=== PATIENT | female | born 1980 | race American Indian/Alaskan Native ===

== ENCOUNTER 2017-04-20 13:36 | Emergency (ER) | payer SELFPAY ==
[2017-04-20 13:50] VITALS: BP 127/66
[2017-04-20] MEDS ORDERED: Ibuprofen 800 MG Tab PO ONE (14:07)
--- NOTE | 2017-04-20 14:11 | EDM.PDOC ---
ED HPI GENERAL MEDICAL PROBLEM - General Chief Complaint: Lower Extremity Injury/Pain Stated Complaint: L LEG INJURY Time Seen by Provider: 04/20/17 13:54 Source of Information: Reports: Patient History Limitations: Reports: No Limitations - History of Present Illness INITIAL COMMENTS - FREE TEXT/NARRATIVE: Patient is a 37-year-old female who presents ED complaining of left anterior and and medial knee pain. Patient states this past Thursday she tripped on some lumbar injuring her left knee. Due to her inability to walk and swelling present patient went home and iced it throughout the course the weekend. Swelling has decreased up until today. Patient states today while at work she tripped on a mat twisting her left knee. She had instant pain to the anterior and medial aspect of the knee with some mild swelling present. She is able to weight-bear but is limited secondary to discomfort. She has no prior history of surgeries to the left knee. There is no numbness or tingling present. She is not able to really flex or extend her knee secondary discomfort. She denies any additional complaints. Left Knee Pain Score (Numeric/FACES): 7 - Related Data Allergies Allergy/AdvReac Type Severity Reaction Status Date / Time No Known Allergies Allergy Verified 04/20/17 13:54 Home Meds: Home Meds Ferrous Sulfate [Iron] 325 mg PO DAILY 04/20/17 [History] Sertraline [Zoloft] 0 mg PO DAILY 04/20/17 [History] Past Medical History Psychiatric History: Reports: Depression Hematologic History: Reports: Anemia Social & Family History - Tobacco Use Smoking Status *Q: Never Smoker - Caffeine Use Caffeine Use: Reports: Coffee, Energy Drinks, Soda - Recreational Drug Use Recreational Drug Use: No Review of Systems - Review of Systems Review Of Systems: See Below Musculoskeletal: Reports: Joint Swelling (Left anterior knee) Skin: Denies: Bruising Neurological: Reports: Difficulty Walking (Secondary and left knee pain). Denies: Numbness, Tingling ED EXAM, GENERAL - Physical Exam Exam: See Below Exam Limited By: No Limitations General Appearance: Alert, WD/WN, No Apparent Distress Ears: Hearing Grossly Normal Nose: Normal Inspection Throat/Mouth: Normal Voice, No Airway Compromise Neck: Normal Inspection, Supple Respiratory/Chest: No Respiratory Distress, No Accessory Muscle Use Cardiovascular: Normal Peripheral Pulses, Regular Rate, Rhythm Peripheral Pulses: 2+: Posterior Tibial (L) Extremities: Other (Mild swelling noted to the left anterior knee. Pain with palpation the left and it Kathleen along the patella and also medial joint space. Decreased range of motion both passive and active secondary discomfort. Limited exam secondary to pain.) Neurological: Alert, Oriented, CN II-XII Intact, Normal Cognition, No Motor/ Sensory Deficits Psychiatric: Normal Affect, Normal Mood Skin Exam: Warm, Dry, Intact, Normal Color Course - Vital Signs Last Recorded V/S: Last Vital Signs Temp 97.4 F 04/20/17 13:46 Pulse 56 L 04/20/17 13:46 Resp 20 04/20/17 13:46 BP 127/66 04/20/17 13:46 Pulse Ox 100 04/20/17 13:46 - Orders/Labs/Meds Orders: Active Orders 24 hr Category Date Time Status DME for Discharge [COMM] Stat Oth 04/20/17 15:08 Ordered Meds: Medications Discontinued Medications Generic Name Dose Route Start Last Admin Trade Name Freq PRN Reason Stop Dose Admin Ibuprofen 800 mg 04/20/17 14:07 04/20/17 14:27 Motrin PO 04/20/17 14:08 800 mg ONETIME ONE Administration - Re-Assessments/Exams Free Text/Narrative Re-Assessment/Exam: Ordered x-ray of the left knee and also ibuprofen 800 mg by mouth. X-ray of the left knee did not reveal any acute bony abnormalities. Soft tissue swelling present. Ordered knee immobilizer and crutches for discharge. Discharge instructions as documented. Departure - Departure Time of Disposition: 15:04 Disposition: Home, Self-Care 01 Condition: Good Clinical Impression: Left knee sprain Qualifiers: Encounter type: initial encounter Involved ligament of knee: unspecified cruciate ligament Qualified Code(s): S83.502A - Sprain of unspecified cruciate ligament of left knee, initial encounter - Discharge Information Instructions: Crutch Use, [id number], Cast or Splint Care, [id number], Knee Sprain, [id number], Knee Immobilizer, [id number] Referrals: Debora Barrera MD [Primary Care Provider] - Forms: ED Department Discharge, ED Return to Work/School Form Additional Instructions: As discussed x-ray of the left knee did not reveal any acute bony abnormalities. Etiology current complaint most likely knee sprain. May involve collateral ligaments, meniscus, or muscles with upper thigh. Treatment at this time is knee immobilizer utilizing crutches to ambulate. You're to be nonweightbearing. Apply ice to affected area as needed throughout the course the day. Elevate when able to reduce any swelling and pain. Take Tylenol and ibuprofen in alternating fashion for discomfort. Call and make an appointment with Dr. Santiago orthopedic surgeon tomorrow to be seen in 10 days for reevaluation. Return to the ED as needed for any new or worsening symptoms. To return to work please see occupational med doctor for modification of job duties. - My Orders Last 24 Hours: My Active Orders 04/20/17 15:08 DME for Discharge [COMM] Stat - Assessment/Plan Last 24 Hours: My Active Orders 04/20/17 15:08 DME for Discharge [COMM] Stat
--- NOTE | 2017-04-20 15:06 | CR ---
Left knee: Four views of the left knee were obtained. Medial and lateral joint spaces are preserved. No joint effusion is seen. Minimal spurring off the patella is noted. No fracture or other abnormality is appreciated. Impression: 1. Minimal spurring within the patella. 2. Left knee exam is otherwise unremarkable. Diagnostic code #2
== END 2017-04-20 15:31 | disposition home or self-care (01) ==
LOC: JD.ED 13:36
DX: S83.502A Sprain of unspecified cruciate ligament of left knee, initial encounter (principal); F32.9 Major depressive disorder, single episode, unspecified; Z79.899 Other long term (current) drug therapy; X50.0XXA Overexertion from strenuous movement or load, initial encounter
CPT/HCPCS: 73564; 99284; A9270; 99283

== ENCOUNTER → 2017-05-07 | Day surgery (SDC) | payer MEDICAID ==
[~2017-05-07] MED LIST: Lactated Ringers 1,000 ML IV SCH; Lidocaine 1% 0 ML ONE; Lidocaine 1%/Sod Bicarbonate in NS 8.4% 1 ML Syringe PRN; Midazolam 1 MG/ML 2 ML SDV ONE; Propofol 200 MG/20 ML SDV ONE; Sodium Chloride 0.9% 10 ML Syringe FLUSH PRN; fentaNYL 100 MCG/2 ML SDV ONE
== END ==
LOC: JD.SDS 10:47
PROVIDERS: ATTEND Surgery
DX: Z53.8 Procedure and treatment not carried out for other reasons (principal)
CPT/HCPCS: J2250; J2704; J3010

== ENCOUNTER 2019-12-09 04:21 | Emergency (ER) | payer BC, OTHER ==
[2019-12-09] MEDS ORDERED: Sodium Chloride 0.9% 10 ML Syringe FLUSH PRN (05:01)
--- NOTE | 2019-12-09 05:10 | EDM.PDOC ---
<SofieAbdon Donny - Last Filed: 12/09/19 06:53> ED HPI GENERAL MEDICAL PROBLEM - General Chief Complaint: ENT Problem Stated Complaint: SWOLLEN LIP/CHEEK/DIZZY Time Seen by Provider: 12/09/19 04:33 Source of Information: Reports: Patient History Limitations: Reports: No Limitations - History of Present Illness INITIAL COMMENTS - FREE TEXT/NARRATIVE: Ms. Kang is a 39-year-old woman with a past medical history significant for obesity, who now presents the ED stating that she developed right cheek swelling yesterday morning, , 12/08/2019. She denies having any trauma to the area, and does not recall being bitten by an insect. She denies dental pain, although she states that she has a purulent oral drainage. No recent fever. No prior similar symptoms. The patient did not attempt any over-the- counter or home remedies prior to coming to the ED. Here in the ED, the patient's initial BP is found to be elevated at 150/78, and she is mildly tachycardic at 105 bpm, otherwise, she is afebrile, saturating 100 % on room air. The patient denies recent fever, chills, sore throat, ear pain, nasal or sinus congestion, cough, dyspnea, chest pain, palpitations, nausea, vomiting, constipation, diarrhea, abdominal pain, urinary symptoms, recent weight gain or weight loss, recent bloody bowel movements or black bowel movements, recent joint aches, headaches, or rashes. The patient does not have a PCP. - Related Data Allergies Allergy/AdvReac Type Severity Reaction Status Date / Time No Known Allergies Allergy Verified 12/09/19 04:39 Home Meds: Home Meds Amoxicillin/Clavulanate K [Augmentin 875-125 MG] 1 tab PO Q12H #20 tab 12/09/19 [Rx] Past Medical History Endocrine/Metabolic History: Reports: Obesity/BMI 30+ - Past Surgical History HEENT Surgical History: Reports: Oral Surgery (wisdom teeth extracted) GI Surgical History: Reports: Cholecystectomy (2002) Female Surgical History: Reports: Section (x 4), Tubal Ligation Social & Family History - Family History Family Medical History: Noncontributory - Tobacco Use Smoking Status *Q: Current Some Day Smoker Years of Tobacco use: 1 Packs/Tins Daily: 0.1 - Caffeine Use Caffeine Use: Reports: None - Alcohol Use Alcohol Use History: Yes Alcohol Use Frequency: Socially - Recreational Drug Use Recreational Drug Use: No - Living Situation & Occupation Living situation: Reports: Single, with Family (4 kids) Occupation: Employed ([employer]) ED ROS GENERAL - Review of Systems Review Of Systems: Comprehensive ROS is negative, except as noted in HPI. ED EXAM, GENERAL - Physical Exam Exam: See Below Exam Limited By: No Limitations General Appearance: Alert, WD/WN, No Apparent Distress Eye Exam: Bilateral Eye: EOMI, Normal Inspection Ears: Normal Canal (left), Hearing Grossly Normal, Other (Normal left ear. 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 Teeth #3, 4, 5 with amalgam fillings. Tooth #12 capped. Teeth # 13 , 14 with amalgam fillings. Tooth #16 absent. Tooth #17 absent. Tooth #18 with composite filling. Tooth #19 absent. Tooth #21 absent. Tooth #28, 29, 30 , 31 with amalgam fillings. Tooth #32 absent. There is a tongue piercing.) Head: Atraumatic, Facial Swelling (Right cheek, with mild erythema and mild calor. The medial aspect of the swelling is tender to palpation.) Neck: Normal Inspection, Supple, Non-Tender, Full Range of Motion. No: Lymphadenopathy (L), Lymphadenopathy (R) Course - Vital Signs Last Recorded V/S: Last Vital Signs Temp 36.5 C 12/09/19 04:31 Pulse 105 H 12/09/19 04:31 Resp 18 12/09/19 04:31 BP 150/78 H 12/09/19 04:31 Pulse Ox 100 12/09/19 04:31 - Orders/Labs/Meds Orders: Active Orders 24 hr Category Date Time Status Peripheral IV Care [RC] . DIRECTED Care 12/09/19 05:01 Active Sodium Chloride 0.9% [Normal Saline] 1,000 ml Med 12/09/19 05:15 Active IV ASDIRECTED Sodium Chloride 0.9% [Saline Flush] Med 12/09/19 05:01 Active 10 ml FLUSH ASDIRECTED PRN Peripheral IV Insertion Adult [OM.PC] Routine Oth 12/09/19 05:01 Ordered Medication Orders Sodium Chloride (Normal Saline) 1,000 mls @ 150 mls/hr IV ASDIRECTED GRACIE Last Admin: 12/09/19 05:17 Dose: 150 mls/hr Sodium Chloride (Saline Flush) 10 ml FLUSH ASDIRECTED PRN PRN Reason: Keep Vein Open Last Admin: 12/09/19 05:17 Dose: 10 ml Labs: Laboratory Tests 12/09/19 12/09/19 Range/Units 05:12 05:50 WBC 5.51 (3.98-10.04) K/mm3 RBC 3.83 L (3.98-5.22) M/mm3 Hgb 9.9 L (11.2-15.7) gm/dl Hct 33.0 L (34.1-44.9) % MCV 86.2 (79.4-94.8) fl MCH 25.8 (25.6-32.2) pg MCHC 30.0 L (32.2-35.5) g/dl RDW Std Deviation 50.9 H (36.4-46.3) fL Plt Count 267 (182-369) K/mm3 MPV 10.3 (9.4-12.3) fl Neutrophils % (Manual) 85 H (40-60) % Band Neutrophils % 0 (0-10) % Lymphocytes % (Manual) 10 L (20-40) % Atypical Lymphs % 0 % Immat Monocytes % (Man) 0 Monocytes % (Manual) 5 (2-10) % Eosinophils % (Manual) 0 L (0.7-5.8) % Basophils % (Manual) 0 L (0.1-1.2) Metamyelocytes % 0 Myelocytes % 0 Promyelocytes % 0 Blast Cells % 0 Plasma Cell % (Manual) 0 Nucleated RBCs 0.0 % Platelet Estimate Adequate Anisocytosis 1+ slight RBC Morph Comment Not Reportable Sodium 140 (136-145) mEq/L Potassium 3.6 (3.5-5.1) mEq/L Chloride 103 (98-107) mEq/L Carbon Dioxide 24 (21-32) mEq/L Anion Gap 16.6 H (5-15) BUN 16 (7-18) mg/dL Creatinine 1.1 H (0.55-1.02) mg/dL Est Cr Clr Drug Dosing 67.43 mL/min Estimated GFR (MDRD) 56 (>60) mL/min BUN/Creatinine Ratio 14.5 (14-18) Glucose 104 (74-106) mg/dL Calcium 8.9 (8.5-10.1) mg/dL Total Bilirubin 0.9 (0.2-1.0) mg/dL AST 64 H (15-37) U/L ALT 94 H (14-59) U/L Alkaline Phosphatase 101 (46-116) U/L Total Protein 8.3 H (6.4-8.2) g/dl Albumin 3.8 (3.4-5.0) g/dl Globulin 4.5 gm/dL Albumin/Globulin Ratio 0.8 L (1-2) Meds: Medications Generic Name Dose Route Start Last Admin Trade Name Freq PRN Reason Stop Dose Admin Sodium Chloride 1,000 mls @ 150 mls/hr 12/09/19 05:15 12/09/19 05:17 Normal Saline IV 150 mls/hr ASDIRECTED GRACIE Administration Sodium Chloride 10 ml 12/09/19 05:01 12/09/19 05:17 Saline Flush FLUSH 10 ml ASDIRECTED PRN Administration Keep Vein Open Discontinued Medications Generic Name Dose Route Start Last Admin Trade Name Freq PRN Reason Stop Dose Admin Iopamidol 100 ml 12/09/19 05:59 12/09/19 06:00 Isovue-300 (61%) IVPUSH 12/09/19 06:00 100 ml ONETIME ONE Administration - Re-Assessments/Exams Free Text/Narrative Re-Assessment/Exam: 12/09/19 05:02 As above, the patient has had about 24 hours of right facial swelling with some tenderness. She feels like she has a purulent oral drainage, but I do not see any source of drainage, dental decay, or suggestion of infection. The cause of the patient's right facial swelling is not immediately obvious. It could be occult inflammatory reaction to an insect bite, although the patient does not recall being bitten by an insect, or an unusual allergic reaction. I think the best way to determine the cause and appropriate treatment is to obtain a CT of her face with IV contrast, along with some blood work to see if there is evidence of an infection. The patient has agreed. 12/09/19 06:32 The patient's CBC is remarkable for a H/H mildly depressed at 9.9/33.0, with the remainder of her CBC being unremarkable. Her CMP is remarkable for an anion gap mildly elevated at 16.6, but with a bicarbonate normal at 24. Her Cr is slightly elevated at 1.1, with a BUN normal at 16. Her AST/ALT are mildly elevated at 64/94, with the remainder of her CMP being unremarkable. 12/09/19 06:[address] Ovalles, and care of the patient turned over to him at this time, for CT results and disposition, for change of shift. Departure - Departure Disposition: Home, Self-Care 01 Clinical Impression: Swelling of right side of face - Discharge Information Prescriptions: Amoxicillin/Clavulanate K [Augmentin 875-125 MG] 1 tab PO Q12H #20 tab Referrals: PCP,None [Primary Care Provider] - Forms: ED Department Discharge, ED Return to Work/School Form Additional Instructions: Return to the emergency room with any questions problems or worsening symptoms. Follow-up in the hospital clinic on Thursday for recheck call today to schedule an appointment [phone]. Take the antibiotics as directed Sepsis Event Note - Evaluation Sepsis Screening Result: No Definite Risk - Focused Exam Vital Signs: Vital Signs Temp Pulse Resp BP Pulse Ox 12/09/19 04:31 36.5 C 105 H 18 150/78 H 100 Date Exam was Performed: 12/09/19 Time Exam was Performed: 06:53 <Stanley Ovalles - Last Filed: 12/09/19 07:25> Course - Re-Assessments/Exams Free Text/Narrative Re-Assessment/Exam: 12/09/19 07:10 Care change of shift. CT results are back which is really nondiagnostic she is got some minimal sinus findings thought to be chronic no other real acute changes noted. Examined the patient she is got no significant intraoral swelling except behind her right upper lip and this is mild she is getting a little irritation from it rubbing on her teeth. She seems to have good strength but has some vague numbness on that side of the face involving the right upper lip and towards the maxillary sinus. She is got mild redness of the skin no obvious bug bite or other signs of trauma. At this point I think is reasonable to start her in antibiotics that she has some redness and facial swelling and this could be related to her sinuses. The other thought is that she developing an early Bhat' s palsy. I did discuss this with the patient and recommend she follow-up in the hospital clinic early this next week. With the sinus potential we will start her on Augmentin 875 twice daily for 10 days. Departure - Departure Time of Disposition: 07:13 Sepsis Event Note - Focused Exam Date Exam was Performed: 12/09/19 Time Exam was Performed: 07:24
[2019-12-09] MEDS ORDERED: Sodium Chloride 0.9% 1,000 ML IV SCH (05:15)
[2019-12-09] MEDS ORDERED: Diatrizoate Meglumine/Diatrizoate Sodium 37% 120 ML Bottle PO ONE (05:57)
[2019-12-09] MEDS ORDERED: Iopamidol 612 MG/ML 100 ML Bottle IVPUSH ONE (05:59)
--- NOTE | 2019-12-09 06:36 | CT ---
CT maxillofacial Technique: Multiple axial sections were obtained from above the frontal sinuses inferiorly through the mandible. Intravenous contrast was given. Reconstructed coronal and sagittal images were obtained. Findings: Small rounded soft tissue findings are seen within both inferior maxillary sinuses believed to represent minimal retention cysts as well as mild mucosal thickening. These findings are most likely chronic. Other visualized paranasal sinuses show nothing acute. Mastoid sinuses are clear. No acute bony abnormality is seen. Right and left globes are symmetric. Mild scattered lymph nodes are seen believed to be within normal limits. No retrobulbar are abnormality is seen. Parotid and submandibular salivary glands show no discrete abnormality. No parapharyngeal abnormality is appreciated. Impression: 1. Nothing acute is appreciated on CT study of the face. 2. Minimal sinus findings believed to be chronic. Diagnostic code #1 This report was dictated in MDT I agree with preliminary report from jo-ann, finalized on 12/09/19, 7:16 AM Central Daylight Time
[2019-12-09 07:32] VITALS: BP 130/70; PULSE 70
== END 2019-12-09 07:32 | disposition home or self-care (01) ==
LOC: JD.ED 04:21
DX: R22.0 Localized swelling, mass and lump, head (principal); E66.9 Obesity, unspecified; F17.210 Nicotine dependence, cigarettes, uncomplicated; Z68.43 Body mass index [BMI] 50.0-59.9, adult
CPT/HCPCS: 36415; 70487; 80053; 85007; 85027; 99283; J7030; Q9967; Q9963

== ENCOUNTER 2020-04-06 03:00 | Emergency (ER) | payer BC, MEDICAID ==
--- NOTE | 2020-04-06 03:21 | EDM.PDOC ---
<Stanley Ovalles - Last Filed: 04/06/20 12:14> ED HPI GENERAL MEDICAL PROBLEM - General Chief Complaint: Respiratory Problem Stated Complaint: COVID + SOB AND ABDOMINAL PAIN Time Seen by Provider: 04/06/20 03:20 - Related Data Allergies Allergy/AdvReac Type Severity Reaction Status Date / Time No Known Allergies Allergy Verified 04/06/20 03:26 Home Meds: Home Meds dexAMETHasone [Dexamethasone] 1.5 mg PO Q6H #40 tab 04/06/20 [Rx] Departure - Departure Time of Disposition: 12:14 Disposition: Home, Self-Care 01 Clinical Impression: COVID-19, Viral pneumonia, Fever, Hypoxia - Discharge Information Prescriptions: dexAMETHasone [Dexamethasone] 1.5 mg PO Q6H #40 tab Instructions: COVID-19 Referrals: PCP,None [Primary Care Provider] - Forms: ED Department Discharge Additional Instructions: Return to the emergency room with any questions problems or worsening symptoms. Use the oxygen as long as you need to. After you have feeling better follow-up in the hospital clinic for recheck [phone]. You have been given a prescription for dexamethasone take this as directed. <Melchor Daigle - Last Filed: 04/07/20 10:32> ED HPI GENERAL MEDICAL PROBLEM - General Source of Information: Reports: Patient History Limitations: Reports: No Limitations - History of Present Illness INITIAL COMMENTS - FREE TEXT/NARRATIVE: 40-year-old female of [place] ancestry presents to the ED due to increasing dyspnea and cough. She believes she became ill last Thursday, March 30. She had a COVID-19 test done on Thursday, April 02 and it came back positive on Thursday the . She believes she has lost her sense of smell and taste. Has not ate much at all for the last 3 days. Has been having loose stools up to 6 or 7 times per day particularly if she eats. Paroxysmal cough somewhat productive of a whitish phlegm. Initially had quite significant fever and chills April 05 to the . Feels generally weak lightheaded and dizzy with standing. She does not have diabetes. Has had previous cholecystectomy and . Risk factors are morbid obesity. She reports she is currently on no medications. Onset: Gradual Onset Date: 03/30/20 Duration: Day(s):, Getting Worse Location: Reports: Chest (Generalized myalgia. Shortness of breath and productive cough.), Generalized, Other (Headache diarrhea) Quality: Reports: Ache (Particular low back left upper abdomen and neck.), Other Severity: Moderate (Headache) Improves with: Reports: None Worsens with: Reports: Other (Standing up and exertion.) Context: Reports: Other (Known COVID-19 illness diagnosed 2 days ago). Denies: Activity, Exercise, Lifting, Sick Contact, Trauma Associated Symptoms: Reports: Cough, cough w sputum, Diaphoresis (Mostly white in color.), Fever/Chills, Headaches, Loss of Appetite, Malaise, Shortness of Breath, Weakness, Other (Loose diarrhea stools up to 6 or 7 times per day). D enies: Confusion, Nausea/Vomiting, Rash, Seizure Treatments WASH BOX OPERATOR: Reports: Acetaminophen, NSAIDS Abdomen Pain Score (Numeric/FACES): 7 Past Medical History - Past Health History Medical/Surgical History: Denies Medical/Surgical History HEENT History: Reports: None Cardiovascular History: Reports: None Respiratory History: Reports: None Gastrointestinal History: Reports: None Genitourinary History: Reports: None HALAL MEAT PACKER History: Reports: , Other (See Below) Other HALAL MEAT PACKER History: menorrhagia Musculoskeletal History: Reports: None Neurological History: Reports: None Psychiatric History: Reports: None Endocrine/Metabolic History: Reports: Obesity/BMI 30+ Hematologic History: Reports: Anemia, Iron Deficiency Immunologic History: Reports: None Oncologic (Cancer) History: Reports: None Dermatologic History: Reports: None - Past Surgical History HEENT Surgical History: Reports: Oral Surgery (wisdom teeth extracted) GI Surgical History: Reports: Cholecystectomy (2002) Female Surgical History: Reports: Section (x 4), Tubal Ligation Social & Family History - Family History Family Medical History: Noncontributory - Caffeine Use Caffeine Use: Reports: None - Living Situation & Occupation Living situation: Reports: Single, with Family (4 kids) Occupation: Employed ([employer]) ED [facility] GENERAL - Review of Systems Review Of Systems: See Below Constitutional: Reports: Fever, Chills, Malaise, Weakness, Fatigue, Night Sweats, Decreased Appetite HEENT: Reports: Throat Pain, Other Respiratory: Reports: Shortness of Breath, Cough, Sputum. Denies: Wheezing, Pleuritic Chest Pain, Hemoptysis (White in color) Cardiovascular: Reports: Dyspnea on Exertion, Lightheadedness. Denies: Chest Pain, Blood Pressure Problem, Claudication, Orthopnea Endocrine: Reports: Fatigue GI/Abdominal: Reports: Anorexia (Not eating much at all for 3 days.), Diarrhea, Decreased Appetite (Up to 6 or 7 times per day a few days ago.) : Reports: Other (Urine is very dark in color.) Musculoskeletal: Reports: Muscle Pain (Lysed myalgia particularly left upper abdomen low back and neck.) Skin: Reports: No Symptoms Neurological: Reports: Dizziness, Headache, Weakness. Denies: Confusion, Trouble Speaking, Gait Disturbance Psychiatric: Reports: No Symptoms Hematologic/Lymphatic: Reports: No Symptoms Immunologic: Reports: No Symptoms ED EXAM, GENERAL - Physical Exam Exam: See Below Exam Limited By: No Limitations General Appearance: Alert, WD/WN, No Apparent Distress, Other (Temperature is 36.3. She does not feel warm to palpation at this time heart rate is 112 and sinus tachycardia at the bedside respiratory is 20 with O2 sats of 93 to 95% on room air. BP 138/81.) Eye Exam: Bilateral Eye: Normal Inspection, PERRL Ears: Normal TMs Throat/Mouth: Normal Inspection, Normal Lips, Normal Oropharynx, Other (Is mildly dry and coated) Head: Atraumatic, Normocephalic Neck: Normal Inspection, Supple, Non-Tender, Full Range of Motion. No: Carotid Bruit, Lymphadenopathy (L), Lymphadenopathy (R) Respiratory/Chest: Lungs Clear, Normal Breath Sounds, No Accessory Muscle Use, Respiratory Distress. No: Rales, Rhonchi, Wheezing Cardiovascular: Normal Peripheral Pulses (Mild tachypnea at rest 20/min. O2 sats 93 to 95% room air), Regular Rate, Rhythm, No Edema, No Gallop, No Murmur, No Rub Peripheral Pulses: 2+: Posterior Tibial (L), Posterior Tibial (R), Dorsalis Pedis (L), Dorsalis Pedis (R), 3+: Carotid (L), Carotid (R) GI/Abdominal: Normal Bowel Sounds, Soft, Non-Tender, No Organomegaly, No Abnormal Bruit, No Mass, Pelvis Stable, Other (Marked obesity. This limits ability to palpate solid organs. Previous cholecystectomy and scars appreciated) Back Exam: Normal Inspection, Full Range of Motion. No: CVA Tenderness (L), CVA Tenderness (R) Extremities: Normal Inspection, Normal Range of Motion, Non-Tender, No Pedal Edema Neurological: Alert, Oriented, CN II-XII Intact, Normal Cognition Psychiatric: Normal Affect, Normal Mood Skin Exam: Warm, Dry, Intact, Normal Color, No Rash EKG INTERPRETATION EKG Date: 04/06/20 Time: 03:53 Rhythm: Other (Sinus tachycardia) Rate (Beats/Min): 103 [place]: Normal P-Wave: Present QRS: Other (The R wave transition V2 consider right ventricular appear to be versus septal hypertrophy pattern. Q waves noted in leads III and aVF. Consider old inferior wall myocardial infarction) ST-T: Other (Nonspecific T wave changes inverted V2 and flat in V3.) QT: Normal EKG Interpretation Comments: Abnormal ECG Course - Vital Signs Last Recorded V/S: Last Vital Signs Temp 36.3 C 04/06/20 03:20 Pulse 112 H 04/06/20 03:20 Resp 20 04/06/20 03:20 BP 138/81 04/06/20 03:20 Pulse Ox 93 L 04/06/20 03:20 - Orders/Labs/Meds Labs: Laboratory Tests 04/06/20 04/06/20 04/06/20 Range/Units 03:50 03:50 03:50 WBC 3.47 L (3.98-10.04) K/mm3 RBC 3.95 L (3.98-5.22) M/mm3 Hgb 10.8 L (11.2-15.7) gm/dl Hct 34.8 (34.1-44.9) % MCV 88.1 (79.4-94.8) fl MCH 27.3 (25.6-32.2) pg MCHC 31.0 L (32.2-35.5) g/dl RDW Std Deviation 56.2 H (36.4-46.3) fL Plt Count 216 (182-369) K/mm3 MPV 9.0 L (9.4-12.3) fl Neut % (Auto) 64.8 (34.0-71.1) % Lymph % (Auto) 22.5 (19.3-51.7) % [place] % (Auto) 11.8 (4.7-12.5) % Eos % (Auto) 0.3 L (0.7-5.8) Baso % (Auto) 0.3 (0.1-1.2) % Neut # (Auto) 2.25 (1.56-6.13) K/mm3 Lymph # (Auto) 0.78 L (1.18-3.74) K/mm3 [place] # (Auto) 0.41 H (0.24-0.36) K/mm3 Eos # (Auto) 0.01 L (0.04-0.36) K/mm3 Baso # (Auto) 0.01 (0.01-0.08) K/mm3 PT 10.3 (9.7-11.7) SECONDS INR 0.96 APTT 26 (22-31) SECONDS D-Dimer, Quantitative (0.19-0.50) mg/L Sodium 133 L (136-145) mEq/L Potassium 3.8 (3.5-5.1) mEq/L Chloride 99 (98-107) mEq/L Carbon Dioxide 24 (21-32) mEq/L Anion Gap 13.8 (5-15) BUN 11 (7-18) mg/dL Creatinine 1.2 H (0.55-1.02) mg/dL Est Cr Clr Drug Dosing 61.21 mL/min Estimated GFR (MDRD) 50 (>60) mL/min BUN/Creatinine Ratio 9.2 L (14-18) Glucose 115 H (74-106) mg/dL Calcium 8.4 L (8.5-10.1) mg/dL Magnesium 2.1 (1.8-2.4) mg/dl Ferritin (8-252) ng/ml Total Bilirubin 0.9 (0.2-1.0) mg/dL AST 50 H (15-37) U/L ALT 51 (14-59) U/L Alkaline Phosphatase 95 (46-116) U/L Lactate Dehydrogenase 310 H (81-234) U/L CK-MB (CK-2) < 0.5 (0-3.6) ng/ml Troponin I < 0.017 (0.00-0.056) ng/mL C-Reactive Protein 5.0 H* (<1.0) mg/dL NT-Pro-B Natriuret Pep (0-125) pg/mL Total Protein 7.7 (6.4-8.2) g/dl Albumin 3.2 L (3.4-5.0) g/dl Globulin 4.5 gm/dL Albumin/Globulin Ratio 0.7 L (1-2) Ketones (0.0-0.3) mM 04/06/20 04/06/20 04/06/20 Range/Units 03:50 03:50 03:50 WBC (3.98-10.04) K/mm3 RBC (3.98-5.22) M/mm3 Hgb (11.2-15.7) gm/dl Hct (34.1-44.9) % MCV (79.4-94.8) fl MCH (25.6-32.2) pg MCHC (32.2-35.5) g/dl RDW Std Deviation (36.4-46.3) fL Plt Count (182-369) K/mm3 MPV (9.4-12.3) fl Neut % (Auto) (34.0-71.1) % Lymph % (Auto) (19.3-51.7) % [place] % (Auto) (4.7-12.5) % Eos % (Auto) (0.7-5.8) Baso % (Auto) (0.1-1.2) % Neut # (Auto) (1.56-6.13) K/mm3 Lymph # (Auto) (1.18-3.74) K/mm3 [place] # (Auto) (0.24-0.36) K/mm3 Eos # (Auto) (0.04-0.36) K/mm3 Baso # (Auto) (0.01-0.08) K/mm3 PT (9.7-11.7) SECONDS INR APTT (22-31) SECONDS D-Dimer, Quantitative 0.30 (0.19-0.50) mg/L Sodium (136-145) mEq/L Potassium (3.5-5.1) mEq/L Chloride (98-107) mEq/L Carbon Dioxide (21-32) mEq/L Anion Gap (5-15) BUN (7-18) mg/dL Creatinine (0.55-1.02) mg/dL Est Cr Clr Drug Dosing mL/min Estimated GFR (MDRD) (>60) mL/min BUN/Creatinine Ratio (14-18) Glucose (74-106) mg/dL Calcium (8.5-10.1) mg/dL Magnesium (1.8-2.4) mg/dl Ferritin 90 (8-252) ng/ml Total Bilirubin (0.2-1.0) mg/dL AST (15-37) U/L ALT (14-59) U/L Alkaline Phosphatase (46-116) U/L Lactate Dehydrogenase (81-234) U/L CK-MB (CK-2) (0-3.6) ng/ml Troponin I (0.00-0.056) ng/mL C-Reactive Protein (<1.0) mg/dL NT-Pro-B Natriuret Pep 27 (0-125) pg/mL Total Protein (6.4-8.2) g/dl Albumin (3.4-5.0) g/dl Globulin gm/dL Albumin/Globulin Ratio (1-2) Ketones (0.0-0.3) mM 09/25/20 Range/Units 03:50 WBC (3.98-10.04) K/mm3 RBC (3.98-5.22) M/mm3 Hgb (11.2-15.7) gm/dl Hct (34.1-44.9) % MCV (79.4-94.8) fl MCH (25.6-32.2) pg MCHC (32.2-35.5) g/dl RDW Std Deviation (36.4-46.3) fL Plt Count (182-369) K/mm3 MPV (9.4-12.3) fl Neut % (Auto) (34.0-71.1) % Lymph % (Auto) (19.3-51.7) % [place] % (Auto) (4.7-12.5) % Eos % (Auto) (0.7-5.8) Baso % (Auto) (0.1-1.2) % Neut # (Auto) (1.56-6.13) K/mm3 Lymph # (Auto) (1.18-3.74) K/mm3 [place] # (Auto) (0.24-0.36) K/mm3 Eos # (Auto) (0.04-0.36) K/mm3 Baso # (Auto) (0.01-0.08) K/mm3 PT (9.7-11.7) SECONDS INR APTT (22-31) SECONDS D-Dimer, Quantitative (0.19-0.50) mg/L Sodium (136-145) mEq/L Potassium (3.5-5.1) mEq/L Chloride (98-107) mEq/L Carbon Dioxide (21-32) mEq/L Anion Gap (5-15) BUN (7-18) mg/dL Creatinine (0.55-1.02) mg/dL Est Cr Clr Drug Dosing mL/min Estimated GFR (MDRD) (>60) mL/min BUN/Creatinine Ratio (14-18) Glucose (74-106) mg/dL Calcium (8.5-10.1) mg/dL Magnesium (1.8-2.4) mg/dl Ferritin (8-252) ng/ml Total Bilirubin (0.2-1.0) mg/dL AST (15-37) U/L ALT (14-59) U/L Alkaline Phosphatase (46-116) U/L Lactate Dehydrogenase (81-234) U/L CK-MB (CK-2) (0-3.6) ng/ml Troponin I (0.00-0.056) ng/mL C-Reactive Protein (<1.0) mg/dL NT-Pro-B Natriuret Pep (0-125) pg/mL Total Protein (6.4-8.2) g/dl Albumin (3.4-5.0) g/dl Globulin gm/dL Albumin/Globulin Ratio (1-2) Ketones 0.48 (0.0-0.3) mM Meds: Medications Discontinued Medications Generic Name Dose Route Start Last Admin Trade Name Freq PRN Reason Stop Dose Admin Dexamethasone 3 mg 04/06/20 05:09 04/06/20 05:29 Dexamethasone IVPUSH 04/06/20 05:10 3 mg ONETIME ONE Administration Dextrose/Lactated Ringer's 1,000 mls @ 999 mls/hr 04/06/20 03:45 04/06/20 03:50 Dextrose 5%-Lactated Ringers IV 999 mls/hr ASDIRECTED GRACIE Administration Lactated Ringer's 1,000 mls @ 999 mls/hr 04/06/20 05:20 04/06/20 05:29 Ringers, Lactated IV 04/06/20 06:20 999 mls/hr .BOLUS ONE Administration - Radiology Interpretation Free Text/Narrative:: 40-year-old female of [place] ancestry presents to the ED with a known positive COVID-19 diagnosis made 2 days ago through [facility]. She developed symptoms about a week ago March 30. Feels worse the last 48 hours with complete loss of appetite increase shortness of breath even at rest with paroxysmal productive cough at times. Had significant fever and chills the first 3 days of illness April 02-. Not so much the last 48 hours. Diarrhea associate with eating up to 6 times per day. Has lost her sense of taste and smell and continues to have a sore throat. O2 sats are 93 to 95% on room air. Lungs are clear to auscultation percussion. Benign abdominal examination. Plan D5 Ringer's lactate at open. Chest x-ray to be done. Routine labs to include serum ferritin, LDH and d-dimer assay including troponin and ECG. - Re-Assessments/Exams Free Text/Narrative Re-Assessment/Exam: 04/06/20 04:33 chest x-ray carried out per portable technique. Patient appears to have mild cardiomegaly. She has bilateral pulmonary infiltrates on the right side involving both lower lobe and upper lobe and left lower lobe compatible with COVID-19 pneumonia.White count is 3.47 with 65% neutrophils. Hemoglobin slightly low at 10.8 with hematocrit of 34.8. Platelet count 216,000. PT is 10.3 with an INR of 0.96. PTT is 26 d-dimer is 0.30. Serum ketones are elevated at 0.48. Sats are staying around 90 to 93% at best. This is with an ear pulse oximeter. We will have her placed on a finger pulse oximetry. We will start her on oxygen at 2 L/min by nasal cannula. 04/06/20 05:07 02 sats range between 95 and 99% on 2 L/min by nasal cannula.Sodium is 133 with a potassium of 3.8. Chloride is 99 with a bicarb of 24. Anion gap is 13.8. BUN is 11 with a creatinine of 1.2. GFR is 50. Glucose is 115. Calcium is 8.4. Magnesium is 2.1. Ferritin is 90 total bilirubin 0.9 with an AST of 15 and ALT of 51. Alk phos is 95 LDH is elevated at 310. CK-MB is less than 0.5 troponin I is less than 0.017. C-reactive protein is 5.0. BNP is 27. Total protein 7.7 with an albumin fraction of 3.2. Patient will therefore be given dexamethasone 3 mg IV at this time. Will give second liter of IV fluids lactated Ringer's at open. 04/06/20 08:37 patient did not do well off of oxygen. She dropped into the low 80s. She was returned to O2 at 2 L/min and is 02 sats are 94 to 96%. Tentatively she can be discharged home with home oxygen treatment. Will place her on dexamethasone 3 mg twice daily for the next 10 days. We will arrange for home oxygen therapy. Patient be discharged on 3 L/min by nasal cannula. Oxygen services will have to be arranged through [facility]. They have been contacted by Dr. Ovalles and it appears that there is a fair amount of paperwork that has to be sorted out prior to being able to use oxygen. [facility] staff will come to the ED Departure - Departure Condition: Fair - Discharge Information *PRESCRIPTION DRUG MONITORING PROGRAM REVIEWED*: Not Applicable *COPY OF PRESCRIPTION DRUG MONITORING REPORT IN PATIENT SWETHA: Not Applicable
[2020-04-06 03:26] VITALS: BP 138/81; PULSE 112
[2020-04-06] MEDS ORDERED: Dextrose 5%-Lactated Ringers 1,000 ML IV SCH (03:45)
[2020-04-06] MEDS ORDERED: Dexamethasone 4 MG/ML SDV IVPUSH ONE (05:09)
[2020-04-06] MEDS ORDERED: Lactated Ringers 1,000 ML IV ONE (05:20)
--- NOTE | 2020-04-06 07:16 | CR ---
Chest: Portable view of the chest was obtained. Comparison: No prior chest imaging is available. Patchy areas of increased density within the left upper chest as well as left lower chest. Lung markings slightly increased on the right side within the perihilar regions. Heart is felt to be somewhat prominent in size. Bony structures are grossly intact. Impression: 1. Areas of increased density on both sides of the chest, worse on the left side most likely representing viral pneumonia. Diagnostic code #3 Study was dictated in MDT
== END 2020-04-06 13:00 | disposition home or self-care (01) ==
LOC: JD.ED 03:00
DX: U07.1 COVID-19 (principal); J12.89 Other viral pneumonia; R09.02 Hypoxemia; E66.01 Morbid (severe) obesity due to excess calories; Z68.43 Body mass index [BMI] 50.0-59.9, adult
CPT/HCPCS: 36415; 71045; 80053; 82009; 82553; 82728; 83615; 83735; 83880; 84484; 85025; 85379; 85610; 85730; 86140; 93005; 96361; 96374; 99285; J1100; J7120; J7121; 93010; 99284

== ENCOUNTER 2020-04-08 12:43 | Emergency (ER) | payer MEDICAID ==
[2020-04-08 13:12] VITALS: BP 132/70
[2020-04-08 13:13] VITALS: PULSE 91
--- NOTE | 2020-04-08 13:38 | EDM.PDOC ---
ED HPI GENERAL MEDICAL PROBLEM - General Chief Complaint: Respiratory Problem Stated Complaint: COVID +/SOB/COUGH Time Seen by Provider: 04/08/20 13:07 - History of Present Illness INITIAL COMMENTS - FREE TEXT/NARRATIVE: 40-year-old female returns the emergency room with a worsening cough. Patient was seen here 2 days ago diagnosed with COVID. She was started on dexamethasone and discharged on oxygen 3 L/min. Overall her breathing seems to be proving a little. What is bothering her is her cough it is getting more frequent. And this is making it difficult for her to sleep. She does not feel any more short of breath, and in fact is improving some. The patient left her O2 machine at home and it was about 45 minutes or so from the time she was off of it till she was brought into the exam room. At which point she was quite hypoxic. However she responded nicely to oxygen and is satting 93 to 95% on 2 L her home O2 was at 3 L. Patient was started on dexamethasone 3 mg twice daily for 10 days. The patient did notice that after taking this that her aches and pains got a lot better and she thought overall she was doing better just now she is coughing more. Patient is frustrated that this cough is keeping her up when she tries to sleep. Generalized Pain Score (Numeric/FACES): 8 - Related Data Allergies Allergy/AdvReac Type Severity Reaction Status Date / Time No Known Allergies Allergy Verified 04/06/20 03:26 Home Meds: Home Meds dexAMETHasone [Dexamethasone] 1.5 mg PO Q6H #40 tab 04/06/20 [Rx] Benzonatate 200 mg PO TID #15 capsule 04/08/20 [Rx] Past Medical History - Past Health History Medical/Surgical History: Denies Medical/Surgical History HEENT History: Reports: None Cardiovascular History: Reports: None Respiratory History: Reports: None Gastrointestinal History: Reports: None Genitourinary History: Reports: None BUSINESS LIAISON OFFICER 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: Reports: , Other (See Below) Other BUSINESS LIAISON OFFICER History: menorrhagia Musculoskeletal History: Reports: None Neurological History: Reports: None Psychiatric History: Reports: None Endocrine/Metabolic History: Reports: Obesity/BMI 30+ Hematologic History: Reports: Anemia, Iron Deficiency Immunologic History: Reports: None Oncologic (Cancer) History: Reports: None Dermatologic History: Reports: None - Infectious Disease History Infectious Disease History: Reports: Novel Coronavirus - Past Surgical History HEENT Surgical History: Reports: Oral Surgery (wisdom teeth extracted) GI Surgical History: Reports: Cholecystectomy (2002) Female Surgical History: Reports: Section (x 4), Tubal Ligation Social & Family History - Family History Family Medical History: Noncontributory - Caffeine Use Caffeine Use: Reports: None - Living Situation & Occupation Living situation: Reports: Single, with Family (4 kids) Occupation: Employed ([employer]) ED ROS GENERAL - Review of Systems Review Of Systems: See Below Constitutional: Reports: No Symptoms HEENT: Reports: No Symptoms Respiratory: Reports: Shortness of Breath (Her shortness of breath is certainly no worse than it was a couple of days ago), Cough. Denies: Wheezing, Pleuritic Chest Pain, Sputum, Hemoptysis Cardiovascular: Reports: No Symptoms Endocrine: Reports: No Symptoms GI/Abdominal: Reports: No Symptoms : Reports: No Symptoms Musculoskeletal: Reports: No Symptoms Skin: Reports: No Symptoms ED EXAM, GENERAL - Physical Exam Exam: See Below Exam Limited By: No Limitations General Appearance: Alert, No Apparent Distress, Obese, Other (She was quite hypoxic when she came in but was off her oxygen for quite a long time) Eye Exam: Bilateral Eye: Normal Inspection Ears: Normal External Exam, Normal Canal, Hearing Grossly Normal, Normal TMs Nose: Normal Inspection, Normal Mucosa, No Blood Throat/Mouth: Normal Inspection, Normal Lips, Normal Oropharynx, Normal Voice, No Airway Compromise Head: Atraumatic, Normocephalic Neck: No: Lymphadenopathy (L), Lymphadenopathy (R) Respiratory/Chest: No Respiratory Distress, Lungs Clear, Normal Breath Sounds Cardiovascular: Regular Rate, Rhythm, No Murmur, Other (Obvious edema) Extremities: Other (Patient has some vague ecchymosis in her lower extremities t hese are nontender with palpation at all below the knee. She had a meniscal injury to her knee this last August. But no recent injuries she did bump into some with her right and has had some bruising there for the last several weeks.) Psychiatric: Normal Affect EKG INTERPRETATION EKG Date: 04/08/20 Rhythm: NSR [place]: Normal P-Wave: Present QRS: Other (Mildly decreased voltage in the limb and precordial leads most likely due to body habitus) ST-T: Other (Nonspecific nondiagnostic changes very minimal) QT: Normal Comparison: NA - No Prior EKG Course - Vital Signs Last Recorded V/S: Last Vital Signs Temp 37.1 C 04/08/20 13:08 Pulse 91 04/08/20 13:12 Resp 24 H 04/08/20 13:08 BP 132/70 04/08/20 13:08 Pulse Ox 98 04/08/20 13:12 - Orders/Labs/Meds Meds: Medications Discontinued Medications Generic Name Dose Route Start Last Admin Trade Name Denise PRN Reason Stop Dose Admin Benzonatate 200 mg 04/08/20 13:44 04/08/20 13:56 Tessalon Perles PO 04/08/20 13:45 200 mg ONETIME ONE Administration - Re-Assessments/Exams Free Text/Narrative Re-Assessment/Exam: 04/08/20 13:42 Check a repeat chest x-ray EKG was already done on today's visit. Anticipate starting Tessalon for her cough 04/08/20 15:16 Repeat chest x-ray shows a slightly worsening x-ray pattern but given that x-ray findings often leg clinical findings and she is doing okay on supplemental oxygen as long as she is using it we can continue with the same plan we will start her on Tessalon to help with her cough patient clearly states that her shortness of breath is improving. The patient son will garbage pick up man the Tessalon Perles and then pick her up and get her home immediately to get back on her home O2. Departure - Departure Time of Disposition: 15:09 Disposition: Home, Self-Care 01 Clinical Impression: Pneumonia due to COVID-19 virus - Discharge Information Prescriptions: Benzonatate 200 mg PO TID #15 capsule Instructions: COVID-19 Referrals: PCP,None [Primary Care Provider] - Forms: ED Department Discharge Additional Instructions: Return to the emergency room with any questions problems or worsening symptoms. Continue taking the dexamethasone, as this seems to be helping with your aches and pains and I suspect overall your pneumonia. Stay on your oxygen at all times. You have been started on Tessalon Perles to help with your symptomatic cough. Sepsis Event Note (ED) - Evaluation Sepsis Screening Result: No Definite Risk - Focused Exam Vital Signs: Vital Signs Temp Pulse Resp BP Pulse Ox 04/08/20 13:12 91 98 04/08/20 13:08 37.1 C 97 24 H 132/70 57 L
[2020-04-08] MEDS ORDERED: Benzonatate 100 MG Cap PO ONE (13:44)
--- NOTE | 2020-04-08 13:59 | CR ---
Chest: Portable view of the chest was obtained. Comparison: Prior chest x-ray of 04/06/20. Heart size is enlarged. Upper mediastinum is normal. Diffuse parenchymal densities are seen. Findings appear increased within the left lung from prior study. Right lung appears slightly worsened. Bony structures are grossly intact. Impression: 1. Stable cardiomegaly. 2. Increasing parenchymal change on both sides of lung which unfortunately is believed to represent worsening Covid pneumonia. Diagnostic code #5 This report was dictated in MDT
== END 2020-04-08 15:25 | disposition home or self-care (01) ==
LOC: JD.ED 12:43
DX: U07.1 COVID-19 (principal); J12.89 Other viral pneumonia; E66.9 Obesity, unspecified; Z68.42 Body mass index [BMI] 45.0-49.9, adult; Z98.890 Other specified postprocedural states
CPT/HCPCS: 71045; 99285; A9270; 93010; 99283

== ENCOUNTER 2020-07-31 01:18 | Emergency (ER) | payer MEDICAID ==
[2020-07-31 01:33] VITALS: BP 147/102; PULSE 102
--- NOTE | 2020-07-31 02:12 | EDM.PDOC ---
ED HPI GENERAL MEDICAL PROBLEM - General Chief Complaint: Skin Complaint Stated Complaint: GOT BATTERY ACID ON HANDS AND FEET Time Seen by Provider: 07/31/20 01:35 Source of Information: Reports: Patient, RN Notes Reviewed - History of Present Illness INITIAL COMMENTS - FREE TEXT/NARRATIVE: 40 yr old female with hand and foot discomfort. Some battery acid spilled from a marine battery unto her carpet yesterday. She use baking soda to neutralize it and than used some rags and water to clean it up. She did not use any type of protective gloves. Now the skin feels dry, tight and irritated hands and feet, areas of contact. There has been no rash or vesiculation. Also has voiding frequency, worried about possible UTI. Bilateral Hand Pain Score (Numeric/FACES): 8 - Related Data Allergies Allergy/AdvReac Type Severity Reaction Status Date / Time No Known Allergies Allergy Verified 07/31/20 01:32 Home Meds: Home Meds . 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 (See Below) Other ROLL COVERER History: menorrhagia Musculoskeletal History: Reports: None Neurological History: Reports: None Psychiatric History: Reports: None Endocrine/Metabolic History: Reports: Obesity/BMI 30+ Hematologic History: Reports: Anemia, Iron Deficiency Immunologic History: Reports: None Oncologic (Cancer) History: Reports: None Dermatologic History: Reports: None - Infectious Disease History Infectious Disease History: Reports: Novel Coronavirus - Past Surgical History Head Surgeries/Procedures: Reports: None HEENT Surgical History: Reports: Oral Surgery Cardiovascular Surgical History: Reports: None Respiratory Surgical History: Reports: None GI Surgical History: Reports: Cholecystectomy Female Surgical History: Reports: Section, Tubal Ligation Endocrine Surgical History: Reports: None Neurological Surgical History: Reports: None Musculoskeletal Surgical History: Reports: None Oncologic Surgical History: Reports: None Dermatological Surgical History: Reports: None Social & Family History - Family History Family Medical History: No Pertinent Family History - Tobacco Use Tobacco Use Status *Q: Unknown Ever Used Tobacco - Caffeine Use Caffeine Use: Reports: None - Living Situation & Occupation Living situation: Reports: Single, with Family (4 kids) Occupation: Employed ([employer]) ED ROS GENERAL - Review of Systems Review Of Systems: See Below Constitutional: Denies: Fever, Chills HEENT: Reports: No Symptoms Respiratory: Reports: No Symptoms Cardiovascular: Reports: No Symptoms GI/Abdominal: Reports: No Symptoms : Reports: Frequency Musculoskeletal: Reports: No Symptoms Skin: Reports: Dryness (hands and feet feel dry and irritated) Neurological: Reports: No Symptoms ED EXAM, SKIN/RASH Exam: See Below General Appearance: Alert, Anxious Eye Exam: Bilateral Eye: PERRL Head: Atraumatic Respiratory/Chest: No Respiratory Distress Back Exam: No: CVA Tenderness (L), CVA Tenderness (R) Extremities: Normal Inspection Skin: Warm, Dry, Normal Color, No Rash, Other (skin of hands and feet is not visibly injured, no unusual discoloration, no vesiculation or skin disruption). No: Erythema Course - Vital Signs Last Recorded V/S: Last Vital Signs Temp 97.5 F 07/31/20 01:29 Pulse 102 H 07/31/20 01:29 Resp 16 07/31/20 01:29 BP 147/102 H 07/31/20 01:29 Pulse Ox 100 07/31/20 01:29 - Orders/Labs/Meds Labs: Laboratory Tests 07/31/20 Range/Units 01:48 Urine Color Yellow (Yellow) Urine Appearance Clear (Clear) Urine pH 6.0 (5.0-8.0) Ur Specific [place] 1.025 (1.005-1.030) Urine Protein Negative (Negative) Urine Glucose (UA) Negative (Negative) Urine Ketones Trace H (Negative) Urine Occult Blood Negative (Negative) Urine Nitrite Negative (Negative) Urine Bilirubin 1+ H (Negative) Urine Urobilinogen 0.2 (0.2-1.0) Ur Leukocyte Esterase Negative (Negative) Departure - Departure Time of Disposition: 02:25 Disposition: Home, Self-Care 01 Condition: Fair Clinical Impression: Irritant hand dermatitis - Discharge Information Instructions: Contact Dermatitis, [id number] Referrals: PCP,None [Primary Care Provider] - Forms: ED Department Discharge Additional Instructions: Antibiotic ointment or vaseline to areas of discomfort hands and feet 3 times daily today and tomorrow. Continue to drink plenty of water. Urinalysis was good, no bladder infection. Sepsis Event Note (ED) - Evaluation Sepsis Screening Result: No Definite Risk - Focused Exam Vital Signs: Vital Signs Temp Pulse Resp BP Pulse Ox 07/31/20 01:29 97.5 F 102 H 16 147/102 H 100
== END 2020-07-31 02:25 | disposition home or self-care (01) ==
LOC: JD.ED 01:18
DX: L24.5 Irritant contact dermatitis due to other chemical products (principal); E66.9 Obesity, unspecified; Z68.42 Body mass index [BMI] 45.0-49.9, adult
CPT/HCPCS: 81003; 99282; 99283

== ENCOUNTER 2020-09-07 04:40 | Emergency (ER) | payer MEDICAID ==
[2020-09-07 04:50] VITALS: BP 148/75; PULSE 98
[2020-09-07] MEDS ORDERED: Metoclopramide 10 MG/2 ML SDV IVPUSH ONE (05:12)
[2020-09-07] MEDS ORDERED: HYDROmorphone 0.5 MG/0.5 ML Syringe IVPUSH ONE (05:12)
--- NOTE | 2020-09-07 05:14 | EDM.PDOC ---
ED HPI GENERAL MEDICAL PROBLEM - General Chief Complaint: Gastrointestinal Problem Stated Complaint: [facility] Time Seen by Provider: 09/07/20 05:07 Source of Information: Reports: Patient History Limitations: Reports: No Limitations - History of Present Illness INITIAL COMMENTS - FREE TEXT/NARRATIVE: 40-year-old female presents to the ED per [facility]. Patient states that she has been sitting on the toilet for over 2 hours straining trying to push out some stool if she feels very constipated. She then developed increased pain in the rectum and bleeding per rectum dripping into the toilet. She therefore called the ambulance in this regard. She feels she is not had any good bowel movement for about 3 days. No past history of significant constipati on. Denies history of recent opioid use or Benadryl that would slow her bowel down. She does have some diffuse lower abdominal cramping pain. No nausea or vomiting. No fever or chills. Has not had any problems voiding. Patient has not taken any medication by mouth as a laxative. Only previous abdominal surgery is been that of a open cholecystectomy. Onset: Today, Sudden Onset Date: 09/07/20 Onset Time: 02:00 Duration: Hour(s):, Getting Worse (Onset and rectal pressure discomfort.) Location: Reports: Other Quality: Reports: Ache, Pressure, Other (Feels like there is something up inside her rectum.) Severity: Severe Improves with: Reports: None Worsens with: Reports: None (And is currently 8 out of 10.) Context: Reports: Other. Denies: Activity, Exercise, Lifting, Sick Contact, Trauma Associated Symptoms: Reports: Loss of Appetite, Malaise, Other. 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 (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 Below) 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 History: menorrhagia Musculoskeletal History: Reports: None Neurological History: Reports: None Psychiatric History: Reports: None Endocrine/Metabolic History: Reports: Obesity/BMI 30+ Hematologic History: Reports: Anemia, Iron Deficiency Immunologic History: Reports: None Oncologic (Cancer) History: Reports: None Dermatologic History: Reports: None - Infectious Disease History Infectious Disease History: Reports: Novel Coronavirus - Past Surgical History Head Surgeries/Procedures: Reports: None HEENT Surgical History: Reports: Oral Surgery Cardiovascular Surgical History: Reports: None Respiratory Surgical History: Reports: None GI Surgical History: Reports: Cholecystectomy Female Surgical History: Reports: Section, Tubal Ligation Endocrine Surgical History: Reports: None Neurological Surgical History: Reports: None Musculoskeletal Surgical History: Reports: None Oncologic Surgical History: Reports: None Dermatological Surgical History: Reports: None Social & Family History - Family History Family Medical History: No Pertinent Family History - Caffeine Use Caffeine Use: Reports: None - Living Situation & Occupation Living situation: Reports: Single, with Family (4 kids) Occupation: Employed ([employer]) ED ROS GENERAL - Review of Systems Review Of Systems: See Below Constitutional: Reports: Fatigue (Being able to sleep.). Denies: Fever, Chills, Malaise, Weight Loss HEENT: Reports: No Symptoms Respiratory: Reports: Shortness of Breath Cardiovascular: Reports: Dyspnea on Exertion. Denies: No Symptoms, Chest Pain, Blood Pressure Problem, Claudication, Edema, Lightheadedness, Orthopnea Endocrine: Reports: Fatigue GI/Abdominal: Reports: Abdominal Pain (Occasion.), Constipation (Mostly today with diffuse lower abdominal cramping pain.), Hematochezia ( rectum tonight. This started after sitting on the toilet for over 2 hours straining to have a bowel movement.), Other (Bright red bleeding per) : Reports: No Symptoms Musculoskeletal: Reports: Back Pain Skin: Reports: No Symptoms Neurological: Reports: No Symptoms Psychiatric: Reports: No Symptoms Hematologic/Lymphatic: Reports: No Symptoms Immunologic: Reports: No Symptoms ED EXAM, GI/ABD - Physical Exam Exam: See Below Exam Limited By: No Limitations General Appearance: Alert, WD/WN, No Apparent Distress, Other (Temperature is 36.7 degrees. Heart rate is 98 and sinus respiratory 16. O2 sats 100% on room air. BP is 148/75.) Eyes: Right: Normal Appearance Throat/Mouth: Other (Tongue is mildly dry.) Neck: Normal Inspection, Supple, Non-Tender, Full Range of Motion. No: Lymphadenopathy (L), Lymphadenopathy (R) Respiratory/Chest: No Respiratory Distress, Lungs Clear, Normal Breath Sounds, No Accessory Muscle Use Cardiovascular: Normal Peripheral Pulses, Regular Rate, Rhythm, No Edema, No Gallop, No Murmur, No Rub GI/Abdominal Exam: No Organomegaly, Pelvis Stable, Tender (Or suprapubically.), Abnormal Bowel Sounds (All sounds are slightly hyperactive in all 4 quadrants.). No: Guarding, Rigid, Rebound Back Exam: Normal Inspection, Full Range of Motion. No: CVA Tenderness (L), CVA Tenderness (R) Extremities: Normal Range of Motion, Non-Tender Neurological: Alert, Oriented, CN II-XII Intact, Normal Cognition Psychiatric: Flat Affect, Other Skin Exam: Warm, Dry, Intact, Normal Color (There is very tired.), No Rash Course - Vital Signs Last Recorded V/S: Last Vital Signs Temp 36.7 C 09/07/20 04:44 Pulse 98 09/07/20 04:44 Resp 16 09/07/20 04:44 BP 148/75 H 09/07/20 04:44 Pulse Ox 100 09/07/20 04:44 - Orders/Labs/Meds Labs: Laboratory Tests 09/07/20 09/07/20 09/07/20 Range/Units 05:25 05:25 05:25 WBC 8.14 (3.98-10.04) K/mm3 RBC 3.86 L (3.98-5.22) M/mm3 Hgb 9.8 L (11.2-15.7) gm/dl Hct 33.3 L (34.1-44.9) % MCV 86.3 (79.4-94.8) fl MCH 25.4 L (25.6-32.2) pg MCHC 29.4 L (32.2-35.5) g/dl RDW Std Deviation 51.1 H (36.4-46.3) fL Plt Count 313 D (182-369) K/mm3 MPV 10.2 (9.4-12.3) fl Neut % (Auto) 82.2 H (34.0-71.1) % Lymph % (Auto) 8.0 L (19.3-51.7) % [place] % (Auto) 6.5 (4.7-12.5) % Eos % (Auto) 2.5 (0.7-5.8) Baso % (Auto) 0.4 (0.1-1.2) % Neut # (Auto) 6.70 H (1.56-6.13) K/mm3 Lymph # (Auto) 0.65 L (1.18-3.74) K/mm3 [place] # (Auto) 0.53 H (0.24-0.36) K/mm3 Eos # (Auto) 0.20 (0.04-0.36) K/mm3 Baso # (Auto) 0.03 (0.01-0.08) K/mm3 Manual Slide Review Abnormal smear PT 10.8 (9.7-12.0) SECONDS INR 1.01 APTT 21.9 (21.7-31.4) SECONDS Sodium 140 (136-145) mEq/L Potassium 3.8 (3.5-5.1) mEq/L Chloride 105 (98-107) mEq/L Carbon Dioxide 27 (21-32) mEq/L Anion Gap 11.8 (5-15) BUN 18 (7-18) mg/dL Creatinine 1.1 H (0.55-1.02) mg/dL Est Cr Clr Drug Dosing 2.67 mL/min Estimated GFR (MDRD) 55 (>60) mL/min BUN/Creatinine Ratio 16.4 (14-18) Glucose 99 (74-106) mg/dL Calcium 9.1 (8.5-10.1) mg/dL Total Bilirubin 1.2 H (0.2-1.0) mg/dL AST 30 (15-37) U/L ALT 37 (14-59) U/L Alkaline Phosphatase 115 (46-116) U/L C-Reactive Protein 0.5 (<1.0) mg/dL Total Protein 7.6 (6.4-8.2) g/dl Albumin 3.3 L (3.4-5.0) g/dl Globulin 4.3 gm/dL Albumin/Globulin Ratio 0.8 L (1-2) Meds: Medications Discontinued Medications Generic Name Dose Route Start Last Admin Trade Name Denise PRN Reason Stop Dose Admin Hydromorphone HCl 1 mg 09/07/20 05:12 09/07/20 05:25 Dilaudid IVPUSH 09/07/20 05:13 1 mg ONETIME ONE Administration Sodium Chloride 1,000 mls @ 999 mls/hr 09/07/20 05:15 09/07/20 05:25 Normal Saline IV 999 mls/hr ASDIRECTED GRACIE Administration Lidocaine HCl 10 ml 09/07/20 06:34 09/07/20 06:57 Xylocaine 2% Jelly MUCMEM 09/07/20 06:35 10 ml ONETIME ONE Administration Magnesium Citrate 210 ml 09/07/20 07:42 09/07/20 08:35 Citrate Of Magnesia PO 09/07/20 07:43 210 ml ONETIME ONE Administration Metoclopramide HCl 10 mg 09/07/20 05:12 09/07/20 05:25 Reglan IVPUSH 09/07/20 05:13 10 mg ONETIME ONE Administration - Radiology Interpretation Free Text/Narrative:: 40-year-old female presents to the ED per [facility] with bleeding per rectum. She reports she has been sitting on the toilet for over 2 hours this morning trying to have a bowel movement due to pressure in the rectal vault. Unable to get bowels to move. Then she started to have bleeding per rectum both dripping into the toilet and wiping. She has had no previous problems with hemorrhoids or rectal bleeding. Associated diffuse lower abdominal intermittent crampy pain. She states last good bowel movement was likely 3 days ago. She has not taken any medication to get her bowels moving. Benign abdominal examination other than slight tenderness suprapubically. Plan IV normal saline at open. Given Dilaudid 1 mg IV with Reglan 10 mg IV for pain and nausea relief. KUB will be done routine labs to be done. After the KUB is done I will look at the rectum to see if there is a tear or obvious hemorrhoids. - Re-Assessments/Exams Free Text/Narrative Re-Assessment/Exam: 09/07/20 06:20: The KUB does reveal increased stool throughout the right hemicolon and portions of the transverse colon. There is also a fair amount of stool in the rectal vault. Plan will be to examine her rectum with the aid of the nurse. Will place lidocaine jelly or Urojet lidocaine into the anal cavity to relieve pain and inflammation. After this a Fleet enema will be done with mineral oil.White count is 8.14. The auto differential shows 82% neutrophils. Hemoglobin is low at 9.8 with hematocrit of 33.3. MCV is 86.3. Platelet count is 313,000. The smear reveals 1+ hypochromia. PT is 10.8 with an INR of 1.01. PTT is 21.9. Sodium is 140 with potassium of 3.8. Chloride is 105 with a bicarb of 27. Anion gap is 11.8. BUN is 18 with a creatinine of 1.1 and a GFR 55. Glucose is 99. Calcium 9.1 with a total bilirubin slightly elevated at 1.2. AST is 30 and ALT is 37 alk phosphatase is 115. Patient may have mild Gilbert's syndrome. C-reactive protein was 0.5 total protein 7.6 with an albumin fraction of 3.3 09/07/20 06:42 I have examined the patient's perianal area. There is evidence of chronic perianal dermatitis with slight lichenification and darkening or pigmentation perianally. There are a few old external hemorrhoidal tags. There was no active bleeding. Pain on opening the rectum and she could not tolerate a digital rectal exam. I suspect she has an anal fissure at the 6 o'clock position. Lidocaine jelly was placed into the anus and rectal vault to relieve pain. After about 10 minutes a Fleet enema with mineral oil can be provided. Plan will be then to allow her to go home with magnesium citrate to take 7 ounces mixed with 7 ounces of juice of choice to provide bowel cleanse. Will write a prescription for Anusol HC ointment that she can place into the anus twice daily until healed. If she continues to have pain with bowel movements she will need further investigation to rule out a significant anal fissure and possible benefit from nifedipine 2% ointment that can be compounded at her [facility] pharmacy. Departure - Departure Time of Disposition: 09:30 Disposition: Home, Self-Care 01 Condition: Fair Clinical Impression: Anal or rectal pain, Rectal bleeding, Constipation by delayed colonic transit, Anal fissure, unspecified - Discharge Information *PRESCRIPTION DRUG MONITORING PROGRAM REVIEWED*: Not Applicable *COPY OF PRESCRIPTION DRUG MONITORING REPORT IN PATIENT SWETHA: Not Applicable Prescriptions: polyethylene glycoL 3350 [MiraLAX] 17 gm PO DAILY #1 cont Instructions: Constipation, Adult, Anal Fissure, Adult Referrals: Debora Barrera MD [Primary Care Provider] - Forms: ED Department Discharge Additional Instructions: Evaluation in the emergency room this morning in regards to rectal bleeding and persistent rectal pressure. Reportedly's sitting on the toilet for over 2 hours during the night straining to have a bowel movement but unable to do so. This resulted in rectal bleeding and increased rectal pain. An x-ray of the abdomen does reveal constipation with stool in the rectal vault as well as some stool scattered throughout the right and portions of the transverse colon. Examination of the rectum suggested an anal fissure which is a tear in the lining of the anus from straining or passage of hard stool. This is likely the source of your bleeding and pain. You were treated with lidocaine jelly in the rectal vault to alleviate pain and provided a fleets enema with mineral oil to soften the hard stool in the rectum and allow you to pass the hard stool bolus. Suggest use of MiraLAX powder 17 g once daily for the next 3 weeks to prevent constipation from recurring and soften the stool. You should also take magnesium citrate later today 7 ounces mixed with 7 ounces of juice by mouth once which will provide bowel cleanse and prevent further constipation from occurring in the near future. Lab tests revealed a low hemoglobin at 9.8 which deserves further investigation. I strongly would suggest follow-up with your personal care physician within the next week to 10 days for evaluation of your low hemoglobin mean of the anal fissure is to be nifedipine 2% ointment which can be compounded only over at [facility] pharmacy. It is 1 applicatorful per rectum every night at bedtime for the next 12 days to allow the anal fissure to heal. *Per Pharmacy recommendation prescription increased. It is 1 applicatorful per rectum 3 times a day for the next 20 days to allow the anal fissure to heal and follow up with PCP for additional prescription. Sepsis Event Note (ED) - Evaluation Sepsis Screening Result: No Definite Risk
[2020-09-07] MEDS ORDERED: Sodium Chloride 0.9% 1,000 ML IV SCH (05:15)
[2020-09-07] MEDS ORDERED: Lidocaine 2% Jelly 10 ML Urojet MUCMEM ONE (06:34)
[2020-09-07] MEDS ORDERED: Magnesium Citrate Solution 296 ML Bottle PO ONE (07:42)
--- NOTE | 2020-09-07 08:07 | CR ---
Abdomen: Supine view of the abdomen was obtained. Comparison: No prior abdominal x-rays available. No abnormal calcifications are seen. Single surgical clip is seen within the upper right abdomen. Bowel gas pattern is within normal limits. No soft tissue abnormality is appreciated. No acute bony abnormality is appreciated. Impression: 1. Nothing acute is seen on supine abdominal x-ray. Diagnostic code #2
== END 2020-09-07 09:30 | disposition home or self-care (01) ==
LOC: SUPCPDRO 04:40 → JD.ED 04:40
DX: K62.5 Hemorrhage of anus and rectum (principal); K59.01 Slow transit constipation; K60.2 Anal fissure, unspecified; E66.9 Obesity, unspecified; Z86.16 Personal history of COVID-19; Z90.49 Acquired absence of other specified parts of digestive tract
CPT/HCPCS: 36415; 74018; 80053; 85025; 85610; 85730; 86140; 96374; 96375; 99283; A9270; J1170; J2765; J7030; 99284

== ENCOUNTER 2020-12-25 19:45 | Emergency (ER) | payer MEDICAID ==
[2020-12-25 19:57] VITALS: BP 114/57; PULSE 102
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
== END 2020-12-25 20:10 ==
LOC: JD.ED 19:45
DX: F10.129 Alcohol abuse with intoxication, unspecified (principal); E66.9 Obesity, unspecified; Z79.899 Other long term (current) drug therapy; Z68.43 Body mass index [BMI] 50.0-59.9, adult
CPT/HCPCS: 99283

== ENCOUNTER 2020-12-30 09:35 | Emergency (ER) | payer MEDICAID ==
[2020-12-30] MEDS ORDERED: Ondansetron 4 MG/2 ML SDV IVPUSH ONE (10:01)
[2020-12-30] MEDS ORDERED: Sodium Chloride 0.9% 10 ML Syringe FLUSH PRN (10:01)
[2020-12-30] MEDS ORDERED: LORazepam 2 MG/ML SDV IVPUSH ONE (10:03)
[2020-12-30] MEDS ORDERED: Sodium Chloride 0.9% 1,000 ML IV SCH (10:15)
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
--- NOTE | 2020-12-30 11:36 | CR ---
Chest: 2 views of the chest were obtained. Comparison: Prior chest x-ray 04/08/20. Heart is enlarged. Upper mediastinum is normal. Lungs are clear with no acute parenchymal change. Bony structures show nothing acute for the patient's age. Impression: 1. Cardiomegaly. 2. Nothing acute is otherwise seen on 2 view chest x-ray. Diagnostic code #3
--- NOTE | 2020-12-30 11:37 | CR ---
Right foot: 4 views of the right foot were obtained. Comparison: No prior foot exam is available. Soft tissue swelling is noted. Joint spaces are preserved. No acute fracture, dislocation or other bony abnormality is appreciated. Impression: 1. Mild soft tissue swelling. 2. Nothing acute is seen on right foot study. Diagnostic code #2
[2020-12-30 12:19] VITALS: BP 150/83; PULSE 70
== END 2020-12-30 12:20 | disposition home or self-care (01) ==
LOC: JD.ED 09:35
DX: F10.230 Alcohol dependence with withdrawal, uncomplicated (principal); Y90.0 Blood alcohol level of less than 20 mg/100 ml; Z72.0 Tobacco use; Z68.30 Body mass index [BMI] 30.0-30.9, adult
CPT/HCPCS: 36415; 71046; 73630; 80053; 80307; 83735; 84703; 85025; 96374; 96375; 99285; J2060; J2405; J7030; 99284

== ENCOUNTER 2021-07-31 10:56 | Emergency (ER) | payer MEDICAID ==
[2021-07-31 11:29] VITALS: BP 120/77; PULSE 87
== END 2021-07-31 13:48 | disposition home or self-care (01) ==
LOC: JD.ED 10:56
DX: S06.0X0A Concussion without loss of consciousness, initial encounter (principal); M54.50 Low back pain, unspecified; M79.601 Pain in right arm; E66.9 Obesity, unspecified; Z68.41 Body mass index [BMI] 40.0-44.9, adult; W18.30XA Fall on same level, unspecified, initial encounter
CPT/HCPCS: 72100; 72100-26; 73080-26-RT; 73080-RT; 99283

== ENCOUNTER 2021-08-29 19:34 | Emergency (ER) | payer MEDICAID ==
[2021-08-29] MEDS ORDERED: Ketorolac 30 MG/ML SDV IVPUSH ONE (21:00)
[2021-08-29] MEDS ORDERED: HYDROmorphone 0.5 MG/0.5 ML Syringe IVPUSH ONE (21:00)
[2021-08-29] MEDS ORDERED: Sodium Chloride 0.9% 10 ML Syringe FLUSH PRN (21:00)
[2021-08-29] MEDS ORDERED: Sodium Chloride 0.9% 1,000 ML IV STA (21:00)
[2021-08-29] MEDS ORDERED: Ondansetron 4 MG/2 ML SDV IVPUSH ONE (21:24)
[2021-08-29 23:09] LABS: C. TRACHOMATIS BY PCR NOT DETECTED; N. GONORRHOEAE BY PCR NOT DETECTED
[2021-08-30 00:09] VITALS: BP 115/61; PULSE 83
== END 2021-08-30 00:20 | disposition home or self-care (01) ==
LOC: JD.ED 19:34
DX: S39.011A Strain of muscle, fascia and tendon of abdomen, initial encounter (principal); E86.0 Dehydration; E66.9 Obesity, unspecified; Z68.41 Body mass index [BMI] 40.0-44.9, adult; Z20.822 Contact with and (suspected) exposure to COVID-19
CPT/HCPCS: 36415; 74176; 80053; 81001; 81025; 83690; 85025; 86140; 87491; 87591; 96374; 96375; 99284; J1170; J2405; J7030

== ENCOUNTER 2021-09-14 06:52 | Emergency (ER) | payer BC, MEDICAID ==
[2021-09-14 08:01] VITALS: BP 126/84; PULSE 87
== END 2021-09-14 08:30 | disposition home or self-care (01) ==
LOC: JD.ED 06:52
DX: S02.5XXA Fracture of tooth (traumatic), initial encounter for closed fracture (principal); E66.9 Obesity, unspecified; Z68.41 Body mass index [BMI] 40.0-44.9, adult
CPT/HCPCS: 64400; 99282; 99283

== ENCOUNTER 2021-10-16 05:44 | Emergency (ER) | payer MEDICAID ==
[2021-10-16] MEDS ORDERED: Ondansetron 4 MG/2 ML SDV IVPUSH ONE (06:14)
[2021-10-16] MEDS ORDERED: Sodium Chloride 0.9% 1,000 ML IV ONE (06:14)
[2021-10-16 08:06] VITALS: BP 112/80; PULSE 80
== END 2021-10-16 08:05 | disposition home or self-care (01) ==
LOC: JD.ED 05:44
DX: F10.129 Alcohol abuse with intoxication, unspecified (principal); E66.9 Obesity, unspecified; Z68.41 Body mass index [BMI] 40.0-44.9, adult
CPT/HCPCS: 96374; 99284; 99284-25; J2405; J7030

== ENCOUNTER 2021-11-14 04:24 | Emergency (ER) | payer MEDICAID ==
[2021-11-14 05:36] LABS: ACETAMINOPHEN 0 ug/mL (10-30)
[2021-11-14 07:03] VITALS: BP 125/88; PULSE 88
== END 2021-11-14 07:03 ==
LOC: JD.ED 04:24
DX: F15.10 Other stimulant abuse, uncomplicated (principal); E66.9 Obesity, unspecified; Z68.30 Body mass index [BMI] 30.0-30.9, adult
CPT/HCPCS: 36415; 80053; 80143; 80179; 80306; 80307; 81001; 81025; 83735; 85025; 87086; 99284

== ENCOUNTER 2021-11-14 12:47 | Emergency (ER) | payer MEDICAID, OTHER ==
[2021-11-14 12:52] VITALS: BP 128/73; PULSE 120
[2021-11-14] MEDS ORDERED: LORazepam 1 MG Tab PO ONE (13:17)
== END 2021-11-14 14:19 ==
LOC: JD.ED 12:47
DX: F15.10 Other stimulant abuse, uncomplicated (principal); E66.9 Obesity, unspecified; Z68.42 Body mass index [BMI] 45.0-49.9, adult; Z86.16 Personal history of COVID-19
CPT/HCPCS: 99283; A9270